=== PATIENT | male | born 1955 | race Caucasian/White ===

== ENCOUNTER 2017-03-26 21:26 | Emergency (ER) | payer OTHER ==
[~2017-03-26] VITALS: Ht 182.9 cm; Wt 100.0 kg
[~2017-03-26 21:26] MED LIST: ADV100 IH; AMIT50TA3 PO; ATOR10TA84 PO; BENZ1TAB10 PO; CLOB60CR4 TP; DIAZ10 PO; DONE10TA8 PO; ESOM20CA31 PO; LITH300C3 PO; QUET25TA PO; THEO400T3 PO; TIOT185 IH
[2017-03-26 21:57] LABS: BASOPHILS # (AUTO) 0.05 K/uL (0.00-0.20); BASOPHILS % (AUTO) 0.6 % (0.0-2.0); EOSINOPHILS # (AUTO) 0.29 K/uL (0.00-0.70); EOSINOPHILS % (AUTO) 3.46 % (1.0-6.0); HEMATOCRIT 41.6 % (41-53); LYMPHOCYTES # (AUTO) 1.1 K/uL (1.0-4.8); LYMPHOCYTES % (AUTO) 13.1 % (22.0-44.0); MEAN CORPUSCULAR HEMOGLOBIN 31.2 pg (26.0-34.0); MEAN CORPUSCULAR HGB CONC 33.6 G/dL (31.0-37.0); MEAN CORPUSCULAR VOLUME 93 fL (80-100); MONOCYTES # (AUTO) 0.5 K/uL (0.1-1.0); MONOCYTES % (AUTO) 6.4 % (2.0-9.0); NEUTROPHILS # (AUTO) 6.4 K/uL (1.8-7.7); NEUTROPHILS % (AUTO) 76.4 % (40.0-70.0); PLATELET COUNT (AUTO) 144 K/uL (150-450); RED BLOOD CELL COUNT(AUTO) 4.48 MIL/uL (4.50-5.90); RED CELL DISTRIBUTION WIDTH 14.8 % (11.5-14.5); WHITE BLOOD COUNT (AUTO) 8.4 K/uL (4.5-11.0)
[2017-03-26 22:05] LABS: ANION GAP 14 mmol/L (8-16); CALCIUM, TOTAL 9.4 mg/dL (8.8-10.5); CARBON DIOXIDE 23 mmol/L (22-29); CHLORIDE 103 mmol/L (98-107); CREATININE 1.65 mg/dL (0.60-1.30); GLOMERULAR FILTR. RATE CALC 43 mL/min (>60); POTASSIUM 3.5 mmol/L (3.5-5.1); SODIUM SERUM 140 mmol/L (136-145); UREA NITROGEN, BLOOD 15 mg/dL (7-18)
[2017-03-26 22:10] LABS: ALANINE AMINOTRANSFERASE 35 U/L (12-78); ALBUMIN 3.9 g/dL (3.4-5.0); ASPARTATE AMINOTRANSFERASE 22 U/L (15-37); BILIRUBIN,TOTAL 0.5 mg/dL (0.1-1.0); LITHIUM 0.73 mmol/L (0.60-1.20); TOTAL PROTEIN, SERUM 7.2 g/dL (6.4-8.2)
[2017-03-27 00:12] LABS: APPEARANCE,URINE CLEAR (CLEAR); GLUCOSE, URINE (UA) NEGATIVE (NEGATIVE); KETONES,URINE TRACE mg/dL (NEGATIVE); LEUKOCYTE ESTERASE ,URINE NEGATIVE (NEGATIVE); OCCULT BLOOD,URINE NEGATIVE (NEGATIVE); PH,URINE 6.5 (5.0-8.0); PROTEIN,URINE NEGATIVE (NEGATIVE)
[2017-03-27 00:21] LABS: HYALINE CASTS, URINE 0-2 /LPF (None Seen); SQUAMOUS EPITHELIAL CELL,UR Rare /LPF (None Seen); WBC,URINE 0-2 /HPF (0-5)
[2017-03-27 00:25] VITALS: BP 118/67
== END 2017-03-27 00:43 | disposition home or self-care (01) ==
LOC: EMS 21:27
DX: F25.1 Schizoaffective disorder, depressive type (principal); J44.9 Chronic obstructive pulmonary disease, unspecified; F32.9 Major depressive disorder, single episode, unspecified
CPT/HCPCS: 36415; 80053; 80178; 80307; 81001; 85025; 99284; G0480

== ENCOUNTER 2017-03-31 06:20 | Inpatient (IN) | payer OTHER ==
[~2017-03-31] VITALS: Ht 188 cm; Wt 94.1 kg
[2017-03-31] MEDS ORDERED: CALC-877 PO (06:29)
[2017-03-31] MEDS ORDERED: ALBU8HFA IH (06:29)
[2017-03-31] MEDS ORDERED: METO25 PO (06:29)
[2017-03-31] MEDS ORDERED: LITH300C3 PO (06:29)
[2017-03-31] MEDS ORDERED: ARIP10TA8 PO (06:29)
[2017-03-31] MEDS ORDERED: OMEP20 PO (06:29)
[2017-03-31] MEDS ORDERED: PANT40TA25 PO (06:29)
[2017-03-31] MEDS ORDERED: DSS100 PO (06:29)
[2017-03-31 06:37] LABS: GLUCOSE,POINT OF CARE 123 MG/DL (70-110)
[2017-03-31] MEDS ORDERED: NALOXONE HCL 1 MG/ML 2 ML SYG IVP ONE (06:45)
[2017-03-31] MEDS ORDERED: SODIUM CHLORIDE 0.9% 1,000 ML IV ONE (06:45)
[2017-03-31 06:58] LABS: BASOPHILS % (AUTO) 0.3 % (0.0-2.0); EOSINOPHILS % (AUTO) 1.8 % (1.0-6.0); HEMATOCRIT 41.4 % (41-53); LYMPHOCYTES # (AUTO) 0.8 K/uL (1.0-4.8); LYMPHOCYTES % (AUTO) 11.3 % (22.0-44.0); MEAN CORPUSCULAR HEMOGLOBIN 31.2 pg (26.0-34.0); MEAN CORPUSCULAR HGB CONC 33.7 G/dL (31.0-37.0); MEAN CORPUSCULAR VOLUME 93 fL (80-100); MONOCYTES # (AUTO) 0.4 K/uL (0.1-1.0); MONOCYTES % (AUTO) 5.9 % (2.0-9.0); NEUTROPHILS # (AUTO) 5.8 K/uL (1.8-7.7); NEUTROPHILS % (AUTO) 80.7 % (40.0-70.0); PLATELET COUNT (AUTO) 154 K/uL (150-450); RED BLOOD CELL COUNT(AUTO) 4.48 MIL/uL (4.50-5.90); RED CELL DISTRIBUTION WIDTH 15.5 % (11.5-14.5); WHITE BLOOD COUNT (AUTO) 7.2 K/uL (4.5-11.0)
[2017-03-31 07:10] LABS: PROTHROMBIN TIME 10.7 SEC (9.4-11.6)
[2017-03-31 07:11] LABS: ANION GAP 8 mmol/L (8-16); CALCIUM, TOTAL 9.1 mg/dL (8.8-10.5); CARBON DIOXIDE 27 mmol/L (22-29); CHLORIDE 105 mmol/L (98-107); CREATININE 1.35 mg/dL (0.60-1.30); GLOMERULAR FILTR. RATE CALC 54 mL/min (>60); POTASSIUM 3.9 mmol/L (3.5-5.1); SODIUM SERUM 140 mmol/L (136-145); UREA NITROGEN, BLOOD 11 mg/dL (7-18)
[2017-03-31 07:12] LABS: LITHIUM 0.66 mmol/L (0.60-1.20)
[2017-03-31 07:22] LABS: TROPONIN I < 0.02 ng/mL (0.00-0.05)
[2017-03-31 07:30] LABS: AMMONIA 14 umol/L (11-32)
[2017-03-31 07:35] LABS: ALANINE AMINOTRANSFERASE 32 U/L (12-78); ALBUMIN 3.6 g/dL (3.4-5.0); ASPARTATE AMINOTRANSFERASE 26 U/L (15-37); BILIRUBIN,TOTAL 0.6 mg/dL (0.1-1.0); CREATINE KINASE MB 3.6 ng/mL (0-5); CREATINE KINASE, TOTAL 189 U/L (39-308); TOTAL PROTEIN, SERUM 7.2 g/dL (6.4-8.2)
[2017-03-31 07:46] LABS: APPEARANCE,URINE CLOUDY (CLEAR); GLUCOSE, URINE (UA) NEGATIVE (NEGATIVE); KETONES,URINE 15 mg/dL (NEGATIVE); LEUKOCYTE ESTERASE ,URINE LARGE (NEGATIVE); OCCULT BLOOD,URINE LARGE (NEGATIVE); PROTEIN,URINE NEGATIVE (NEGATIVE)
[2017-03-31 07:59] LABS: ADD UA MICROSCOPIC YES
[2017-03-31 08:00] LABS: RBC,URINE 26-50 /HPF (0-2); WBC,URINE 26-50 /HPF (0-5)
[2017-03-31] MEDS ORDERED: CefTRIAXone 1 GM/DEXTROSE 50 ML IV ONE (08:15)
[2017-03-31 08:51] LABS: SALICYLATE < 2.8 mg/dL (2.8-20.0)
[2017-03-31] MEDS ORDERED: ONDANSETRON HCL 4 MG/2 ML VIAL IVP PRN (09:00)
[2017-03-31 09:07] LABS: ACETAMINOPHEN < 2 mcg/mL (10-30)
[2017-03-31 10:41] LABS: GLUCOSE,POINT OF CARE 81 MG/DL (70-110)
[2017-03-31 11:02] VITALS: BP 112/72
[2017-03-31 15:32] VITALS: BP 108/60
[2017-03-31 19:40] VITALS: BP 103/60
[2017-03-31] MEDS: ALBUTEROL SULFATE HFA 90 MCG/PUFF 8 GM INHALER IH PRN (21:51)
[2017-03-31 23:54] VITALS: BP 112/71
[2017-04-01] MEDS ORDERED: ACETAMINOPHEN 325 MG TABLET PO PRN
[2017-04-01] MEDS ORDERED: BISACODYL 10 MG RECTAL RECTAL SUPPOSITORY PR PRN
[2017-04-01] MEDS ORDERED: ONDANSETRON HCL 4 MG/2 ML VIAL IVP PRN
[2017-04-01] MEDS ORDERED: MAGNESIUM HYDROXIDE SUSPENSION 30 ML UDCUP PO PRN
[2017-04-01] MEDS ORDERED: ZOLPIDEM TARTRATE 5 MG TABLET PO PRN
[2017-04-01] MEDS ORDERED: MORPHINE SULFATE 2 MG/ML SYRINGE IVP PRN
[2017-04-01] MEDS: HEPARIN SODIUM,PORCINE 5,000 UNITS/ML VIAL SQ SCH ×3 (00:49→15:19)
[2017-04-01] MEDS: IPRATROPIUM BROMIDE 0.5 MG/2.5 ML NEB SOLUTION NEB PRN ×3 (03:41→18:52)
[2017-04-01] MEDS: ALBUTEROL SULFATE 2.5 MG/0.5 ML NEB SOLUTION NEB PRN ×3 (03:41→18:52)
[2017-04-01 04:54] VITALS: BP 123/74
[2017-04-01 07:34] VITALS: BP 107/61
[2017-04-01] MEDS: PANTOPRAZOLE SODIUM 40 MG DR TABLET PO SCH (08:38)
[2017-04-01] MEDS: FLUTICASONE/SALMETEROL 100 MCG-50 MCG/INH DISKUS INHALER [28] IH SCH (08:38)
[2017-04-01] MEDS: METOPROLOL TARTRATE 25 MG TABLET PO SCH ×2 (08:39→20:43)
[2017-04-01] MEDS: DIAZEPAM 5 MG TABLET PO SCH ×2 (08:39→20:44)
[2017-04-01] MEDS: CALCIUM OYSTER SHELL 250 MG-VIT D3 125 UNITS TABLET PO SCH ×3 (08:39→20:44)
[2017-04-01] MEDS: ATORVASTATIN CALCIUM 20 MG TABLET PO SCH (08:39)
[2017-04-01] MEDS: DOCUSATE SODIUM 100 MG CAPSULE PO SCH ×3 (08:40→20:42)
[2017-04-01] MEDS: PANTOPRAZOLE SODIUM 40 MG/VIAL IVP SCH (08:40)
[2017-04-01] MEDS: ALBUTEROL SULFATE HFA 90 MCG/PUFF 8 GM INHALER IH PRN ×2 (08:41→15:19)
[2017-04-01] MEDS: BENZTROPINE MESYLATE 1 MG TABLET PO SCH (09:00)
[2017-04-01] MEDS: AMITRIPTYLINE HCL 50 MG TABLET PO SCH ×3 (09:00→20:44)
[2017-04-01] MEDS: QUEtiapine FUMARATE 25 MG TABLET PO SCH (10:56)
[2017-04-01 11:20] VITALS: BP 128/86
[2017-04-01 15:54] VITALS: BP 127/73
[2017-04-01] MEDS ORDERED: 0.9% SODIUM CHLORIDE 5 ML NEB SOLUTION NEB ONE (18:49)
[2017-04-01 19:26] VITALS: BP 105/52
[2017-04-01] MEDS: ARIPiprazole 10 MG TABLET PO SCH (20:42)
[2017-04-01] MEDS: LITHIUM CARBONATE 300 MG CAPSULE PO SCH (20:43)
[2017-04-02] VITALS (7 sets, daily range): BP systolic 102–143; BP diastolic 47–74
[2017-04-02] MEDS: HEPARIN SODIUM,PORCINE 5,000 UNITS/ML VIAL SQ SCH ×3 (00:33→16:10)
[2017-04-02 06:32] LABS: BASOPHILS % (AUTO) 0.4 % (0.0-2.0); EOSINOPHILS % (AUTO) 2.8 % (1.0-6.0); HEMATOCRIT 39.8 % (41-53); HEMOGLOBIN 13.4 g/dL (13.5-17.5); LYMPHOCYTES % (AUTO) 17.3 % (22.0-44.0); MEAN CORPUSCULAR HEMOGLOBIN 31.3 pg (26.0-34.0); MEAN CORPUSCULAR HGB CONC 33.6 G/dL (31.0-37.0); MEAN CORPUSCULAR VOLUME 93 fL (80-100); MONOCYTES # (AUTO) 0.3 K/uL (0.1-1.0); MONOCYTES % (AUTO) 6.1 % (2.0-9.0); NEUTROPHILS # (AUTO) 4.2 K/uL (1.8-7.7); NEUTROPHILS % (AUTO) 73.4 % (40.0-70.0); PLATELET COUNT (AUTO) 164 K/uL (150-450); RED BLOOD CELL COUNT(AUTO) 4.28 MIL/uL (4.50-5.90); WHITE BLOOD COUNT (AUTO) 5.7 K/uL (4.5-11.0)
[2017-04-02] MEDS: ALBUTEROL SULFATE HFA 90 MCG/PUFF 8 GM INHALER IH PRN ×2 (06:59→09:21)
[2017-04-02 07:02] LABS: ALBUMIN 3.3 g/dL (3.4-5.0); BILIRUBIN,TOTAL 0.3 mg/dL (0.1-1.0); CALCIUM, TOTAL 9.7 mg/dL (8.8-10.5); CREATININE 1.31 mg/dL (0.60-1.30); POTASSIUM 4.5 mmol/L (3.5-5.1); TOTAL PROTEIN, SERUM 6.8 g/dL (6.4-8.2)
[2017-04-02] MEDS: DOCUSATE SODIUM 100 MG CAPSULE PO SCH ×3 (09:00→21:29)
[2017-04-02] MEDS: PANTOPRAZOLE SODIUM 40 MG/VIAL IVP SCH (09:00)
[2017-04-02] MEDS: FLUTICASONE/SALMETEROL 100 MCG-50 MCG/INH DISKUS INHALER [28] IH SCH ×3 (09:00→21:29)
[2017-04-02] MEDS: PANTOPRAZOLE SODIUM 40 MG DR TABLET PO SCH (09:22)
[2017-04-02] MEDS: METOPROLOL TARTRATE 25 MG TABLET PO SCH ×2 (09:22→21:00)
[2017-04-02] MEDS: ATORVASTATIN CALCIUM 20 MG TABLET PO SCH (09:22)
[2017-04-02] MEDS: DIAZEPAM 5 MG TABLET PO SCH ×2 (09:22→21:35)
[2017-04-02] MEDS: QUEtiapine FUMARATE 25 MG TABLET PO SCH (09:23)
[2017-04-02] MEDS: CALCIUM OYSTER SHELL 250 MG-VIT D3 125 UNITS TABLET PO SCH ×3 (09:23→21:31)
[2017-04-02] MEDS: AMITRIPTYLINE HCL 50 MG TABLET PO SCH ×3 (09:24→21:30)
[2017-04-02] MEDS: BENZTROPINE MESYLATE 1 MG TABLET PO SCH (12:22)
[2017-04-02] MEDS: ALBUTEROL SULFATE 2.5 MG/0.5 ML NEB SOLUTION NEB PRN ×2 (13:52→16:56)
[2017-04-02] MEDS: IPRATROPIUM BROMIDE 0.5 MG/2.5 ML NEB SOLUTION NEB PRN ×2 (13:52→16:56)
[2017-04-02] MEDS ORDERED: CEPH500 PO (17:29)
[2017-04-02] MEDS ORDERED: SODIUM CHLORIDE 0.9% 50 ML ONE (17:33)
[2017-04-02] MEDS: CefTRIAXone 1 GM/DEXTROSE 50 ML IV SCH (17:35)
[2017-04-02] MEDS: ARIPiprazole 10 MG TABLET PO SCH (21:29)
[2017-04-02] MEDS: LITHIUM CARBONATE 300 MG CAPSULE PO SCH (21:30)
[2017-04-03] MEDS: HEPARIN SODIUM,PORCINE 5,000 UNITS/ML VIAL SQ SCH ×3 (00:33→17:33)
[2017-04-03 04:56] VITALS: BP 128/59
[2017-04-03] MEDS: IPRATROPIUM BROMIDE 0.5 MG/2.5 ML NEB SOLUTION NEB PRN ×2 (07:02→18:57)
[2017-04-03] MEDS: ALBUTEROL SULFATE 2.5 MG/0.5 ML NEB SOLUTION NEB PRN ×2 (07:02→18:57)
[2017-04-03 07:05] LABS: HEMATOCRIT 42.5 % (41-53); MEAN CORPUSCULAR HEMOGLOBIN 30.9 pg (26.0-34.0); MEAN CORPUSCULAR HGB CONC 32.9 G/dL (31.0-37.0); MEAN CORPUSCULAR VOLUME 94 fL (80-100); RED BLOOD CELL COUNT(AUTO) 4.54 MIL/uL (4.50-5.90); RED CELL DISTRIBUTION WIDTH 15.3 % (11.5-14.5)
[2017-04-03 07:07] LABS: WHITE BLOOD COUNT (AUTO) 7.1 K/uL (4.5-11.0)
[2017-04-03 07:19] LABS: ALANINE AMINOTRANSFERASE 24 U/L (12-78); ALBUMIN 3.2 g/dL (3.4-5.0); ANION GAP 6 mmol/L (8-16); ASPARTATE AMINOTRANSFERASE 20 U/L (15-37); BILIRUBIN,TOTAL 0.3 mg/dL (0.1-1.0); CALCIUM, TOTAL 9.8 mg/dL (8.8-10.5); CARBON DIOXIDE 30 mmol/L (22-29); CHLORIDE 104 mmol/L (98-107); CREATININE 1.16 mg/dL (0.60-1.30); GLOMERULAR FILTR. RATE CALC > 60 mL/min (>60); POTASSIUM 4.3 mmol/L (3.5-5.1); SODIUM SERUM 140 mmol/L (136-145); TOTAL PROTEIN, SERUM 6.8 g/dL (6.4-8.2); UREA NITROGEN, BLOOD 10 mg/dL (7-18)
[2017-04-03 07:40] VITALS: BP 133/72
[2017-04-03 08:38] LABS: PLATELET COUNT (AUTO) 144 K/uL (150-450)
[2017-04-03 08:40] LABS: BAND NEUTROPHILS % (MANUAL) 14 % (1-5); LYMPHOCYTES % (MANUAL) 33 % (22-44); RBC MORPHOLOGY COMMENT NORMAL RBC MORPH; TOTAL CELLS COUNTED 100
[2017-04-03] MEDS: ATORVASTATIN CALCIUM 20 MG TABLET PO SCH (09:08)
[2017-04-03] MEDS: DIAZEPAM 5 MG TABLET PO SCH ×2 (09:09→20:04)
[2017-04-03] MEDS: METOPROLOL TARTRATE 25 MG TABLET PO SCH ×2 (09:09→21:29)
[2017-04-03] MEDS: PANTOPRAZOLE SODIUM 40 MG DR TABLET PO SCH (09:09)
[2017-04-03] MEDS: FLUTICASONE/SALMETEROL 100 MCG-50 MCG/INH DISKUS INHALER [28] IH SCH ×2 (09:09→20:02)
[2017-04-03] MEDS: DOCUSATE SODIUM 100 MG CAPSULE PO SCH ×2 (09:09→20:03)
[2017-04-03] MEDS: QUEtiapine FUMARATE 25 MG TABLET PO SCH (09:10)
[2017-04-03] MEDS: AMITRIPTYLINE HCL 50 MG TABLET PO SCH ×3 (09:11→20:03)
[2017-04-03] MEDS: CALCIUM OYSTER SHELL 250 MG-VIT D3 125 UNITS TABLET PO SCH ×3 (09:11→20:04)
[2017-04-03] MEDS: BENZTROPINE MESYLATE 1 MG TABLET PO SCH (09:11)
[2017-04-03 11:42] VITALS: BP 104/55
[2017-04-03] MEDS: ALBUTEROL SULFATE HFA 90 MCG/PUFF 8 GM INHALER IH PRN (13:50)
[2017-04-03] MEDS ORDERED: DENTURE ADHESIVE 68 GM CREAM DT PRN (14:45)
[2017-04-03 16:16] VITALS: BP 125/76
[2017-04-03] MEDS: CefTRIAXone 1 GM/DEXTROSE 50 ML IV SCH (17:33)
[2017-04-03] MEDS: ARIPiprazole 10 MG TABLET PO SCH (20:03)
[2017-04-03] MEDS: LITHIUM CARBONATE 300 MG CAPSULE PO SCH (20:04)
[2017-04-03 20:06] VITALS: BP 103/55
[2017-04-03 21:21] VITALS: BP 131/72
[2017-04-03] MEDS: HYDROCODONE/ACETAMINOPHEN 5-325 MG TABLET PO PRN (21:29)
[2017-04-04 00:20] VITALS: BP 103/67
[2017-04-04] MEDS: HEPARIN SODIUM,PORCINE 5,000 UNITS/ML VIAL SQ SCH ×4 (00:32→22:29)
[2017-04-04 05:55] LABS: BASOPHILS % (AUTO) 0.6 % (0.0-2.0); EOSINOPHILS % (AUTO) 3.4 % (1.0-6.0); HEMATOCRIT 41.4 % (41-53); LYMPHOCYTES # (AUTO) 1.3 K/uL (1.0-4.8); LYMPHOCYTES % (AUTO) 20.9 % (22.0-44.0); MEAN CORPUSCULAR HEMOGLOBIN 31.2 pg (26.0-34.0); MEAN CORPUSCULAR HGB CONC 33.9 G/dL (31.0-37.0); MEAN CORPUSCULAR VOLUME 92 fL (80-100); MONOCYTES # (AUTO) 0.4 K/uL (0.1-1.0); MONOCYTES % (AUTO) 7.3 % (2.0-9.0); NEUTROPHILS # (AUTO) 4.2 K/uL (1.8-7.7); NEUTROPHILS % (AUTO) 67.8 % (40.0-70.0); PLATELET COUNT (AUTO) 187 K/uL (150-450); RED BLOOD CELL COUNT(AUTO) 4.49 MIL/uL (4.50-5.90); WHITE BLOOD COUNT (AUTO) 6.1 K/uL (4.5-11.0)
[2017-04-04 05:57] VITALS: BP 130/60
[2017-04-04 06:10] LABS: ALBUMIN 3.1 g/dL (3.4-5.0); BILIRUBIN,TOTAL 0.3 mg/dL (0.1-1.0); CALCIUM, TOTAL 10.1 mg/dL (8.8-10.5); CREATININE 1.26 mg/dL (0.60-1.30); POTASSIUM 4.2 mmol/L (3.5-5.1); TOTAL PROTEIN, SERUM 7.2 g/dL (6.4-8.2)
[2017-04-04 07:22] VITALS: BP 111/74
[2017-04-04] MEDS ORDERED: SODIUM CHLORIDE 0.9% 100 ML ONE (08:09)
[2017-04-04] MEDS: METOPROLOL TARTRATE 25 MG TABLET PO SCH ×2 (08:11→20:07)
[2017-04-04] MEDS: CALCIUM OYSTER SHELL 250 MG-VIT D3 125 UNITS TABLET PO SCH ×3 (08:11→20:08)
[2017-04-04] MEDS: DIAZEPAM 5 MG TABLET PO SCH (08:11)
[2017-04-04] MEDS: PANTOPRAZOLE SODIUM 40 MG DR TABLET PO SCH (08:11)
[2017-04-04] MEDS: ATORVASTATIN CALCIUM 20 MG TABLET PO SCH (08:11)
[2017-04-04] MEDS: DOCUSATE SODIUM 100 MG CAPSULE PO SCH ×2 (08:11→20:07)
[2017-04-04] MEDS: AMITRIPTYLINE HCL 50 MG TABLET PO SCH (08:12)
[2017-04-04] MEDS: BENZTROPINE MESYLATE 1 MG TABLET PO SCH (08:12)
[2017-04-04] MEDS: QUEtiapine FUMARATE 25 MG TABLET PO SCH (08:12)
[2017-04-04] MEDS: FLUTICASONE/SALMETEROL 100 MCG-50 MCG/INH DISKUS INHALER [28] IH SCH (08:13)
[2017-04-04] MEDS: HYDROCODONE/ACETAMINOPHEN 5-325 MG TABLET PO PRN ×2 (11:07→23:53)
[2017-04-04] MEDS: ALBUTEROL SULFATE HFA 90 MCG/PUFF 8 GM INHALER IH PRN (11:07)
[2017-04-04 11:50] VITALS: BP 98/56
[2017-04-04] MEDS ORDERED: AMIT50TA3 PO ×2 (14:12→14:13)
[2017-04-04 15:05] VITALS: BP 107/66
[2017-04-04] MEDS: CefTRIAXone 1 GM/DEXTROSE 50 ML IV SCH (16:54)
[2017-04-04 19:23] VITALS: BP 120/75
[2017-04-04] MEDS: ALBUTEROL SULFATE 2.5 MG/0.5 ML NEB SOLUTION NEB PRN (19:35)
[2017-04-04] MEDS: IPRATROPIUM BROMIDE 0.5 MG/2.5 ML NEB SOLUTION NEB PRN (19:35)
[2017-04-04] MEDS: ARIPiprazole 10 MG TABLET PO SCH (20:07)
[2017-04-04] MEDS: LITHIUM CARBONATE 300 MG CAPSULE PO SCH (20:07)
[2017-04-04] MEDS: CLOBETASOL 0.05% 15 GM CREAM TP SCH ×2 (20:08→20:11)
[2017-04-05 00:48] VITALS: BP 112/76
[2017-04-05] MEDS: ALBUTEROL SULFATE HFA 90 MCG/PUFF 8 GM INHALER IH PRN ×4 (04:35→22:34)
[2017-04-05 05:25] VITALS: BP 110/63
[2017-04-05] MEDS: ALBUTEROL SULFATE 2.5 MG/0.5 ML NEB SOLUTION NEB PRN ×2 (05:53→23:11)
[2017-04-05] MEDS: IPRATROPIUM BROMIDE 0.5 MG/2.5 ML NEB SOLUTION NEB PRN ×2 (05:53→23:11)
[2017-04-05 06:48] LABS: ALBUMIN 3.2 g/dL (3.4-5.0); BILIRUBIN,TOTAL 0.3 mg/dL (0.1-1.0); CALCIUM, TOTAL 9.9 mg/dL (8.8-10.5); CREATININE 1.25 mg/dL (0.60-1.30); POTASSIUM 4.1 mmol/L (3.5-5.1); TOTAL PROTEIN, SERUM 6.8 g/dL (6.4-8.2)
[2017-04-05 07:09] LABS: BASOPHILS # (AUTO) 0.02 K/uL (0.00-0.20); BASOPHILS % (AUTO) 0.2 % (0.0-2.0); EOSINOPHILS # (AUTO) 0.24 K/uL (0.00-0.70); EOSINOPHILS % (AUTO) 3.48 % (1.0-6.0); HEMATOCRIT 41.9 % (41-53); HEMOGLOBIN 13.7 g/dL (13.5-17.5); LYMPHOCYTES # (AUTO) 1.4 K/uL (1.0-4.8); LYMPHOCYTES % (AUTO) 20.4 % (22.0-44.0); MEAN CORPUSCULAR HEMOGLOBIN 30.7 pg (26.0-34.0); MEAN CORPUSCULAR HGB CONC 32.8 G/dL (31.0-37.0); MEAN CORPUSCULAR VOLUME 94 fL (80-100); MONOCYTES # (AUTO) 0.6 K/uL (0.1-1.0); MONOCYTES % (AUTO) 8.3 % (2.0-9.0); NEUTROPHILS # (AUTO) 4.6 K/uL (1.8-7.7); NEUTROPHILS % (AUTO) 67.7 % (40.0-70.0); PLATELET COUNT (AUTO) 162 K/uL (150-450); RED BLOOD CELL COUNT(AUTO) 4.47 MIL/uL (4.50-5.90); RED CELL DISTRIBUTION WIDTH 15.2 % (11.5-14.5); WHITE BLOOD COUNT (AUTO) 6.8 K/uL (4.5-11.0)
[2017-04-05 07:15] VITALS: BP 103/55
[2017-04-05] MEDS: HEPARIN SODIUM,PORCINE 5,000 UNITS/ML VIAL SQ SCH ×3 (08:13→22:34)
[2017-04-05] MEDS: CALCIUM OYSTER SHELL 250 MG-VIT D3 125 UNITS TABLET PO SCH ×3 (08:14→20:42)
[2017-04-05] MEDS: PANTOPRAZOLE SODIUM 40 MG DR TABLET PO SCH (08:14)
[2017-04-05] MEDS: DOCUSATE SODIUM 100 MG CAPSULE PO SCH ×2 (08:14→20:43)
[2017-04-05] MEDS: METOPROLOL TARTRATE 25 MG TABLET PO SCH ×2 (08:15→20:47)
[2017-04-05] MEDS: CLOBETASOL 0.05% 15 GM CREAM TP SCH ×2 (08:20→20:45)
[2017-04-05] MEDS: HYDROCODONE/ACETAMINOPHEN 5-325 MG TABLET PO PRN ×2 (10:01→18:48)
[2017-04-05 11:59] VITALS: BP 120/72
[2017-04-05] MEDS: CefTRIAXone 1 GM/DEXTROSE 50 ML IV SCH (16:12)
[2017-04-05 16:14] VITALS: BP 111/58
[2017-04-05] MEDS ORDERED: SODIUM CHLORIDE 0.9% 250 ML IV ONE (16:18)
[2017-04-05] MEDS ORDERED: INFLUENZA VIRUS VACCINE QVS 2017-18 (3YR+)/PF 60 MCG/0.5 ML SYRINGE IM ONE (17:45)
[2017-04-05 20:38] VITALS: BP 103/53
[2017-04-05] MEDS: ARIPiprazole 10 MG TABLET PO SCH (20:42)
[2017-04-05] MEDS: LITHIUM CARBONATE 300 MG CAPSULE PO SCH (20:43)
[2017-04-06 00:30] VITALS: BP 107/65
[2017-04-06] MEDS: ALBUTEROL SULFATE HFA 90 MCG/PUFF 8 GM INHALER IH PRN ×2 (03:23→08:16)
[2017-04-06 03:30] VITALS: BP 112/78
[2017-04-06] MEDS: ALBUTEROL SULFATE 2.5 MG/0.5 ML NEB SOLUTION NEB PRN ×3 (03:40→13:51)
[2017-04-06] MEDS: IPRATROPIUM BROMIDE 0.5 MG/2.5 ML NEB SOLUTION NEB PRN ×3 (03:40→13:51)
[2017-04-06 06:33] LABS: BASOPHILS % (AUTO) 0.2 % (0.0-2.0); EOSINOPHILS % (AUTO) 2.8 % (1.0-6.0); HEMATOCRIT 46.7 % (41-53); HEMOGLOBIN 15.8 g/dL (13.5-17.5); LYMPHOCYTES % (AUTO) 13.7 % (22.0-44.0); MEAN CORPUSCULAR HEMOGLOBIN 31.4 pg (26.0-34.0); MEAN CORPUSCULAR HGB CONC 33.8 G/dL (31.0-37.0); MEAN CORPUSCULAR VOLUME 93 fL (80-100); MONOCYTES # (AUTO) 0.4 K/uL (0.1-1.0); NEUTROPHILS # (AUTO) 5.4 K/uL (1.8-7.7); NEUTROPHILS % (AUTO) 77.3 % (40.0-70.0); PLATELET COUNT (AUTO) 162 K/uL (150-450); RED BLOOD CELL COUNT(AUTO) 5.03 MIL/uL (4.50-5.90); RED CELL DISTRIBUTION WIDTH 14.6 % (11.5-14.5)
[2017-04-06 07:13] LABS: ALBUMIN 3.6 g/dL (3.4-5.0); BILIRUBIN,TOTAL 0.3 mg/dL (0.1-1.0); CALCIUM, TOTAL 10.6 mg/dL (8.8-10.5); CREATININE 1.25 mg/dL (0.60-1.30); POTASSIUM 4.3 mmol/L (3.5-5.1); TOTAL PROTEIN, SERUM 7.8 g/dL (6.4-8.2)
[2017-04-06 07:25] VITALS: BP 114/65
[2017-04-06] MEDS: CALCIUM OYSTER SHELL 250 MG-VIT D3 125 UNITS TABLET PO SCH ×2 (08:14→16:30)
[2017-04-06] MEDS: PANTOPRAZOLE SODIUM 40 MG DR TABLET PO SCH (08:14)
[2017-04-06] MEDS: DOCUSATE SODIUM 100 MG CAPSULE PO SCH (08:14)
[2017-04-06] MEDS: HEPARIN SODIUM,PORCINE 5,000 UNITS/ML VIAL SQ SCH ×2 (08:14→16:00)
[2017-04-06] MEDS: METOPROLOL TARTRATE 25 MG TABLET PO SCH (08:16)
[2017-04-06] MEDS: CLOBETASOL 0.05% 15 GM CREAM TP SCH (08:17)
[2017-04-06 11:36] VITALS: BP 135/64
[2017-04-06] MEDS ORDERED: CEFX1I IV (15:14)
[2017-04-06] MEDS: CefTRIAXone 1 GM/DEXTROSE 50 ML IV SCH (16:26)
== END 2017-04-06 17:20 | DRG 92 ==
LOC: EMS 06:20 → 5S 10:11 → 6N 04-04 19:00
PROVIDERS: ADMIT Hospitalist; ATTEND Hospitalist
PROC: 3E0234Z Introduction of Serum, Toxoid and Vaccine into Muscle, Percutaneous Approach (ICD-10-PCS; principal; 2017-04-05)
DX: G92 Toxic encephalopathy (principal); R45.851 Suicidal ideations; F03.90 Unspecified dementia, unspecified severity, without behavioral disturbance, psychotic disturbance, mood disturbance, and anxiety; N39.0 Urinary tract infection, site not specified; F20.9 Schizophrenia, unspecified; K21.9 Gastro-esophageal reflux disease without esophagitis; E78.5 Hyperlipidemia, unspecified; J44.9 Chronic obstructive pulmonary disease, unspecified; F17.210 Nicotine dependence, cigarettes, uncomplicated; B95.8 Unspecified staphylococcus as the cause of diseases classified elsewhere; Z23 Encounter for immunization
CPT/HCPCS: 51702; 70450; 82962; 87086; 93005; 94640; 96365; 96375; 99291; G0480; G0481; J0696; J1644; J2270; J2310; J3535; J7030; J7050

== ENCOUNTER 2017-04-22 11:39 | Inpatient (IN) | payer OTHER, MEDICAID ==
[~2017-04-22] VITALS: Ht 180.3 cm; Wt 92.8 kg
[~2017-04-22 11:39] MED LIST changes: +ALBU8HFA IH; +ARIP10TA8 PO; +CALC-877 PO; +CEFX1I IV; +DSS100 PO; +METO25 PO
[2017-04-22 12:27] LABS: BASOPHILS # (AUTO) 0.02 K/uL (0.00-0.20); BASOPHILS % (AUTO) 0.3 % (0.0-2.0); EOSINOPHILS # (AUTO) 0.26 K/uL (0.00-0.70); EOSINOPHILS % (AUTO) 2.81 % (1.0-6.0); HEMATOCRIT 44.9 % (41-53); HEMOGLOBIN 14.9 g/dL (13.5-17.5); LYMPHOCYTES # (AUTO) 1.5 K/uL (1.0-4.8); LYMPHOCYTES % (AUTO) 16.7 % (22.0-44.0); MEAN CORPUSCULAR HEMOGLOBIN 31.1 pg (26.0-34.0); MEAN CORPUSCULAR HGB CONC 33.2 G/dL (31.0-37.0); MEAN CORPUSCULAR VOLUME 94 fL (80-100); MONOCYTES # (AUTO) 0.5 K/uL (0.1-1.0); MONOCYTES % (AUTO) 5.8 % (2.0-9.0); NEUTROPHILS # (AUTO) 6.8 K/uL (1.8-7.7); NEUTROPHILS % (AUTO) 74.4 % (40.0-70.0); PLATELET COUNT (AUTO) 188 K/uL (150-450); RED BLOOD CELL COUNT(AUTO) 4.79 MIL/uL (4.50-5.90); RED CELL DISTRIBUTION WIDTH 15.8 % (11.5-14.5)
[2017-04-22 12:33] LABS: ANION GAP 12 mmol/L (8-16); CALCIUM, TOTAL 9.5 mg/dL (8.8-10.5); CARBON DIOXIDE 22 mmol/L (22-29); CHLORIDE 103 mmol/L (98-107); CREATININE 1.46 mg/dL (0.60-1.30); GLOMERULAR FILTR. RATE CALC 49 mL/min (>60); GLUCOSE,RANDOM 107 mg/dL (70-110); SODIUM SERUM 137 mmol/L (136-145); UREA NITROGEN, BLOOD 19 mg/dL (7-18)
[2017-04-22 12:39] LABS: ALANINE AMINOTRANSFERASE 33 U/L (12-78); ALBUMIN 4.3 g/dL (3.4-5.0); ALKALINE PHOSPHATASE 109 U/L (46-116); ASPARTATE AMINOTRANSFERASE 26 U/L (15-37); BILIRUBIN,TOTAL 0.8 mg/dL (0.1-1.0); TOTAL PROTEIN, SERUM 8.1 g/dL (6.4-8.2)
[2017-04-22] MEDS ORDERED: LORazepam 2 MG TABLET PO PRN (14:45)
[2017-04-22] MEDS ORDERED: HALOPERIDOL 5 MG TABLET PO PRN (14:45)
[2017-04-22 14:59] LABS: LITHIUM 0.72 mmol/L (0.60-1.20)
[2017-04-22 16:15] VITALS: BP 137/60
[2017-04-22 16:40] VITALS: BP 129/81
[2017-04-22] MEDS: NICOTINE 21 MG/24 HOUR PATCH TD SCH (19:30)
[2017-04-22 19:58] LABS: METHADONE SCREEN, URINE NEGATIVE (NEGATIVE)
[2017-04-22 20:10] LABS: AMPHET/METH SCREEN,URINE NEGATIVE (NEGATIVE); BARBITURATE SCREEN, URINE NEGATIVE (NEGATIVE); BENZODIAZEPINES SCREEN,URINE NEGATIVE (NEGATIVE); CANNABINOID SCREEN,URINE POSITIVE (NEGATIVE); COCAINE SCREEN,URINE NEGATIVE (NEGATIVE); OPIATE SCREEN,URINE NEGATIVE (NEGATIVE)
[2017-04-22 20:13] LABS: APPEARANCE,URINE CLEAR (CLEAR); GLUCOSE, URINE (UA) NEGATIVE (NEGATIVE); KETONES,URINE 15 mg/dL (NEGATIVE); LEUKOCYTE ESTERASE ,URINE NEGATIVE (NEGATIVE); NITRATE,URINE NEGATIVE (NEGATIVE); OCCULT BLOOD,URINE NEGATIVE (NEGATIVE); PHENCYCLIDINE SCREEN,URINE NEGATIVE (NEGATIVE); PROTEIN,URINE NEGATIVE (NEGATIVE); UROBILINOGEN,URINE 0.2 mg/dL (<=1.0)
[2017-04-22 20:18] LABS: BILIRUBIN,URINE PRELIM. POSITIVE (NEGATIVE)
[2017-04-23 07:24] LABS: CHOL/HDL RATIO 3.4 (4.2-7.3)
[2017-04-23] MEDS ORDERED: BACITRACIN 28.4 GM OINTMENT TP PRN (08:45)
[2017-04-23] MEDS ORDERED: MAGNESIUM HYDROXIDE SUSPENSION 30 ML UDCUP PO PRN (08:45)
[2017-04-23] MEDS ORDERED: BENZOCAINE/MENTHOL LOZENGE [8 LOZENGES/PACKET] MM PRN (08:45)
[2017-04-23] MEDS ORDERED: LOPERAMIDE HCL 2 MG CAPSULE PO PRN (08:45)
[2017-04-23] MEDS ORDERED: PETROLATUM,WHITE 71 GM JELLY TP PRN (08:45)
[2017-04-23] MEDS ORDERED: ONDANSETRON HCL 4 MG TABLET PO PRN (08:45)
[2017-04-23] MEDS ORDERED: IBUPROFEN 600 MG TABLET PO PRN (08:45)
[2017-04-23] MEDS ORDERED: ACETAMINOPHEN 325 MG TABLET PO PRN (08:45)
[2017-04-23] MEDS ORDERED: MAG HYDROX/AL HYDROX/SIMETH ES 30 ML SUSPENSION UDCUP PO PRN (08:45)
[2017-04-23] MEDS ORDERED: CloNIDine HCL 0.1 MG TABLET PO PRN (08:45)
[2017-04-23 08:55] VITALS: BP 94/63
[2017-04-23] MEDS: CLOBETASOL 0.05% 15 GM CREAM TP SCH ×2 (09:00→17:00)
[2017-04-23] MEDS: FLUTICASONE/VILANTEROL 100-25 MCG/INH INHALER [14] IH SCH (09:02)
[2017-04-23] MEDS: VENLAFAXINE HCL 75 MG ER CAPSULE PO SCH (09:02)
[2017-04-23] MEDS: ATORVASTATIN CALCIUM 20 MG TABLET PO SCH (09:03)
[2017-04-23] MEDS: DOCUSATE SODIUM 100 MG CAPSULE PO SCH (09:03)
[2017-04-23] MEDS: ESOMEPRAZOLE MAG TRIHYDRATE 20 MG CAPSULE PO SCH (09:03)
[2017-04-23] MEDS: NICOTINE 21 MG/24 HOUR PATCH TD SCH (09:06)
[2017-04-23] MEDS: DENTURE ADHESIVE 68 GM CREAM DT PRN (09:48)
[2017-04-23] MEDS: ALBUTEROL SULFATE HFA 90 MCG/PUFF 8 GM INHALER IH PRN (14:33)
[2017-04-23 16:33] VITALS: BP 104/70
[2017-04-24] MEDS: ALBUTEROL SULFATE HFA 90 MCG/PUFF 8 GM INHALER IH PRN ×2 (01:39→05:42)
[2017-04-24 01:58] VITALS: BP 113/82
[2017-04-24 07:33] LABS: CALCIUM, TOTAL 8.8 mg/dL (8.8-10.5); CREATININE 1.26 mg/dL (0.60-1.30); POTASSIUM 3.9 mmol/L (3.5-5.1)
[2017-04-24 08:35] VITALS: BP 129/80
[2017-04-24] MEDS: VENLAFAXINE HCL 75 MG ER CAPSULE PO SCH (08:59)
[2017-04-24] MEDS: ESOMEPRAZOLE MAG TRIHYDRATE 20 MG CAPSULE PO SCH (08:59)
[2017-04-24] MEDS: FLUTICASONE/VILANTEROL 100-25 MCG/INH INHALER [14] IH SCH (08:59)
[2017-04-24] MEDS: ATORVASTATIN CALCIUM 20 MG TABLET PO SCH (08:59)
[2017-04-24] MEDS: DOCUSATE SODIUM 100 MG CAPSULE PO SCH (08:59)
[2017-04-24] MEDS: CLOBETASOL 0.05% 15 GM CREAM TP SCH ×2 (09:00→17:00)
[2017-04-24] MEDS: NICOTINE 21 MG/24 HOUR PATCH TD SCH (09:03)
[2017-04-24] MEDS: ZOLPIDEM TARTRATE 10 MG TABLET PO PRN (21:56)
[2017-04-24 22:06] VITALS: BP 122/78
[2017-04-25] MEDS: ALBUTEROL SULFATE HFA 90 MCG/PUFF 8 GM INHALER IH PRN ×2 (02:16→06:16)
[2017-04-25 02:23] VITALS: BP 119/61
[2017-04-25] MEDS: DOCUSATE SODIUM 100 MG CAPSULE PO SCH (08:32)
[2017-04-25] MEDS: ESOMEPRAZOLE MAG TRIHYDRATE 20 MG CAPSULE PO SCH (08:32)
[2017-04-25] MEDS: FLUTICASONE/VILANTEROL 100-25 MCG/INH INHALER [14] IH SCH (08:32)
[2017-04-25] MEDS: ATORVASTATIN CALCIUM 20 MG TABLET PO SCH (08:32)
[2017-04-25] MEDS: NICOTINE 21 MG/24 HOUR PATCH TD SCH (08:32)
[2017-04-25] MEDS: VENLAFAXINE HCL 75 MG ER CAPSULE PO SCH (08:33)
[2017-04-25] MEDS: CLOBETASOL 0.05% 15 GM CREAM TP SCH ×2 (08:33→17:00)
[2017-04-25 08:40] VITALS: BP 133/57
[2017-04-25 18:12] VITALS: BP 115/64
[2017-04-26 02:43] VITALS: BP 141/77
[2017-04-26] MEDS: ALBUTEROL SULFATE HFA 90 MCG/PUFF 8 GM INHALER IH PRN ×2 (02:44→14:45)
[2017-04-26] MEDS: CLOBETASOL 0.05% 15 GM CREAM TP SCH ×2 (09:00→17:00)
[2017-04-26] MEDS: NICOTINE 21 MG/24 HOUR PATCH TD SCH (09:00)
[2017-04-26] MEDS: DOCUSATE SODIUM 100 MG CAPSULE PO SCH (09:02)
[2017-04-26] MEDS: VENLAFAXINE HCL 75 MG ER CAPSULE PO SCH (09:03)
[2017-04-26] MEDS: ATORVASTATIN CALCIUM 20 MG TABLET PO SCH (09:03)
[2017-04-26] MEDS: FLUTICASONE/VILANTEROL 100-25 MCG/INH INHALER [14] IH SCH (09:03)
[2017-04-26] MEDS: ESOMEPRAZOLE MAG TRIHYDRATE 20 MG CAPSULE PO SCH (09:04)
[2017-04-26 09:40] VITALS: BP 126/74
[2017-04-26] MEDS ORDERED: LOPERAMIDE HCL 2 MG CAPSULE PO PRN ×2 (13:30)
[2017-04-26 16:30] VITALS: BP 119/75
[2017-04-26] MEDS: ZOLPIDEM TARTRATE 10 MG TABLET PO PRN (21:56)
[2017-04-27 08:30] VITALS: BP 113/55
[2017-04-27] MEDS: NICOTINE 21 MG/24 HOUR PATCH TD SCH (09:00)
[2017-04-27] MEDS: FLUTICASONE/VILANTEROL 100-25 MCG/INH INHALER [14] IH SCH ×2 (09:00→12:44)
[2017-04-27] MEDS: ESOMEPRAZOLE MAG TRIHYDRATE 20 MG CAPSULE PO SCH (09:00)
[2017-04-27] MEDS: VENLAFAXINE HCL 75 MG ER CAPSULE PO SCH (09:00)
[2017-04-27] MEDS: CLOBETASOL 0.05% 15 GM CREAM TP SCH ×2 (09:00→17:00)
[2017-04-27] MEDS: ATORVASTATIN CALCIUM 20 MG TABLET PO SCH (10:31)
[2017-04-27] MEDS: DOCUSATE SODIUM 100 MG CAPSULE PO SCH (10:31)
[2017-04-27] MEDS: ALBUTEROL SULFATE HFA 90 MCG/PUFF 8 GM INHALER IH PRN ×2 (12:46→20:10)
[2017-04-27] MEDS: DENTURE ADHESIVE 68 GM CREAM DT PRN (12:46)
[2017-04-27 16:15] VITALS: BP 127/60
[2017-04-27] MEDS: ZOLPIDEM TARTRATE 10 MG TABLET PO PRN (20:08)
[2017-04-28 02:53] VITALS: BP 122/72
[2017-04-28] MEDS: DOCUSATE SODIUM 100 MG CAPSULE PO SCH (08:08)
[2017-04-28] MEDS: NICOTINE 21 MG/24 HOUR PATCH TD SCH (08:08)
[2017-04-28] MEDS: ESOMEPRAZOLE MAG TRIHYDRATE 20 MG CAPSULE PO SCH (08:09)
[2017-04-28] MEDS: VENLAFAXINE HCL 75 MG ER CAPSULE PO SCH (08:09)
[2017-04-28] MEDS: ATORVASTATIN CALCIUM 20 MG TABLET PO SCH (08:09)
[2017-04-28] MEDS: ALBUTEROL SULFATE HFA 90 MCG/PUFF 8 GM INHALER IH PRN ×2 (08:10→13:12)
[2017-04-28] MEDS: FLUTICASONE/VILANTEROL 100-25 MCG/INH INHALER [14] IH SCH (08:13)
[2017-04-28] MEDS: CLOBETASOL 0.05% 15 GM CREAM TP SCH ×2 (08:14→17:00)
[2017-04-28 08:44] VITALS: BP 139/75
[2017-04-28 17:29] VITALS: BP 134/77
[2017-04-28] MEDS: AMITRIPTYLINE HCL 50 MG TABLET PO SCH (20:15)
[2017-04-29] MEDS: NICOTINE 21 MG/24 HOUR PATCH TD SCH (09:00)
[2017-04-29] MEDS: VENLAFAXINE HCL 75 MG ER CAPSULE PO SCH (09:42)
[2017-04-29] MEDS: ESOMEPRAZOLE MAG TRIHYDRATE 20 MG CAPSULE PO SCH (09:42)
[2017-04-29] MEDS: DOCUSATE SODIUM 100 MG CAPSULE PO SCH (09:42)
[2017-04-29] MEDS: FLUTICASONE/VILANTEROL 100-25 MCG/INH INHALER [14] IH SCH (09:43)
[2017-04-29] MEDS: ATORVASTATIN CALCIUM 20 MG TABLET PO SCH (09:43)
[2017-04-29] MEDS: ALBUTEROL SULFATE HFA 90 MCG/PUFF 8 GM INHALER IH PRN ×2 (09:43→17:09)
[2017-04-29] MEDS: CLOBETASOL 0.05% 15 GM CREAM TP SCH ×2 (09:43→17:10)
[2017-04-29 09:44] VITALS: BP 127/62
[2017-04-29 19:37] VITALS: BP 117/74
[2017-04-29] MEDS: AMITRIPTYLINE HCL 50 MG TABLET PO SCH (21:34)
[2017-04-29] MEDS: ZOLPIDEM TARTRATE 10 MG TABLET PO PRN (21:34)
[2017-04-30 06:03] VITALS: BP 118/70
[2017-04-30 08:19] VITALS: BP 119/56
[2017-04-30] MEDS: NICOTINE 21 MG/24 HOUR PATCH TD SCH (09:00)
[2017-04-30] MEDS: VENLAFAXINE HCL 75 MG ER CAPSULE PO SCH (09:04)
[2017-04-30] MEDS: ATORVASTATIN CALCIUM 20 MG TABLET PO SCH (09:04)
[2017-04-30] MEDS: ALBUTEROL SULFATE HFA 90 MCG/PUFF 8 GM INHALER IH PRN (09:05)
[2017-04-30] MEDS: ESOMEPRAZOLE MAG TRIHYDRATE 20 MG CAPSULE PO SCH (09:05)
[2017-04-30] MEDS: DOCUSATE SODIUM 100 MG CAPSULE PO SCH (09:06)
[2017-04-30] MEDS: FLUTICASONE/VILANTEROL 100-25 MCG/INH INHALER [14] IH SCH (09:07)
[2017-04-30] MEDS: CLOBETASOL 0.05% 15 GM CREAM TP SCH ×2 (09:08→17:07)
[2017-04-30 20:02] VITALS: BP 141/76
[2017-04-30] MEDS: AMITRIPTYLINE HCL 50 MG TABLET PO SCH (20:10)
[2017-05-01] MEDS: CLOBETASOL 0.05% 15 GM CREAM TP SCH ×2 (09:00→16:11)
[2017-05-01] MEDS: NICOTINE 21 MG/24 HOUR PATCH TD SCH (09:00)
[2017-05-01] MEDS: DOCUSATE SODIUM 100 MG CAPSULE PO SCH (09:11)
[2017-05-01] MEDS: VENLAFAXINE HCL 75 MG ER CAPSULE PO SCH (09:11)
[2017-05-01] MEDS: ATORVASTATIN CALCIUM 20 MG TABLET PO SCH (09:11)
[2017-05-01] MEDS: ESOMEPRAZOLE MAG TRIHYDRATE 20 MG CAPSULE PO SCH (09:11)
[2017-05-01] MEDS: FLUTICASONE/VILANTEROL 100-25 MCG/INH INHALER [14] IH SCH (09:12)
[2017-05-01] MEDS: ALBUTEROL SULFATE HFA 90 MCG/PUFF 8 GM INHALER IH PRN (09:13)
[2017-05-01 11:39] VITALS: BP 133/61
[2017-05-01 17:10] VITALS: BP 142/76
[2017-05-01] MEDS: AMITRIPTYLINE HCL 50 MG TABLET PO SCH (20:20)
[2017-05-01] MEDS: ZOLPIDEM TARTRATE 10 MG TABLET PO PRN (20:55)
[2017-05-02 08:33] VITALS: BP 126/75
[2017-05-02] MEDS: NICOTINE 21 MG/24 HOUR PATCH TD SCH (09:00)
[2017-05-02] MEDS: CLOBETASOL 0.05% 15 GM CREAM TP SCH ×2 (09:00→17:00)
[2017-05-02] MEDS: ATORVASTATIN CALCIUM 20 MG TABLET PO SCH (09:42)
[2017-05-02] MEDS: ESOMEPRAZOLE MAG TRIHYDRATE 20 MG CAPSULE PO SCH (09:42)
[2017-05-02] MEDS: DOCUSATE SODIUM 100 MG CAPSULE PO SCH (09:42)
[2017-05-02] MEDS: VENLAFAXINE HCL 75 MG ER CAPSULE PO SCH (09:42)
[2017-05-02] MEDS: ALBUTEROL SULFATE HFA 90 MCG/PUFF 8 GM INHALER IH PRN ×2 (09:45→16:28)
[2017-05-02] MEDS: FLUTICASONE/VILANTEROL 100-25 MCG/INH INHALER [14] IH SCH (09:46)
[2017-05-02 16:35] VITALS: BP 115/70
[2017-05-02] MEDS: AMITRIPTYLINE HCL 50 MG TABLET PO SCH (20:12)
[2017-05-02] MEDS: ZOLPIDEM TARTRATE 10 MG TABLET PO PRN (20:54)
[2017-05-03] MEDS: NICOTINE 21 MG/24 HOUR PATCH TD SCH (09:00)
[2017-05-03] MEDS: CLOBETASOL 0.05% 15 GM CREAM TP SCH ×2 (09:00→17:00)
[2017-05-03] MEDS: DOCUSATE SODIUM 100 MG CAPSULE PO SCH (09:07)
[2017-05-03] MEDS: ESOMEPRAZOLE MAG TRIHYDRATE 20 MG CAPSULE PO SCH (09:07)
[2017-05-03] MEDS: ATORVASTATIN CALCIUM 20 MG TABLET PO SCH (09:07)
[2017-05-03] MEDS: VENLAFAXINE HCL 75 MG ER CAPSULE PO SCH (09:07)
[2017-05-03] MEDS: FLUTICASONE/VILANTEROL 100-25 MCG/INH INHALER [14] IH SCH (09:10)
[2017-05-03] MEDS: ALBUTEROL SULFATE HFA 90 MCG/PUFF 8 GM INHALER IH PRN (09:10)
[2017-05-03] MEDS: DENTURE ADHESIVE 68 GM CREAM DT PRN (09:11)
[2017-05-03 10:22] VITALS: BP 145/81
[2017-05-03 16:27] VITALS: BP 114/63
[2017-05-03] MEDS: ZOLPIDEM TARTRATE 10 MG TABLET PO PRN (21:23)
[2017-05-03] MEDS: AMITRIPTYLINE HCL 50 MG TABLET PO SCH (21:23)
[2017-05-04 08:10] VITALS: BP 120/81
[2017-05-04] MEDS: DOCUSATE SODIUM 100 MG CAPSULE PO SCH (08:26)
[2017-05-04] MEDS: ATORVASTATIN CALCIUM 20 MG TABLET PO SCH (08:27)
[2017-05-04] MEDS: VENLAFAXINE HCL 75 MG ER CAPSULE PO SCH (08:27)
[2017-05-04] MEDS: ESOMEPRAZOLE MAG TRIHYDRATE 20 MG CAPSULE PO SCH (08:28)
[2017-05-04] MEDS: FLUTICASONE/VILANTEROL 100-25 MCG/INH INHALER [14] IH SCH (08:29)
[2017-05-04] MEDS: NICOTINE 21 MG/24 HOUR PATCH TD SCH (09:00)
[2017-05-04] MEDS: CLOBETASOL 0.05% 15 GM CREAM TP SCH (09:00)
[2017-05-04] MEDS: ALBUTEROL SULFATE HFA 90 MCG/PUFF 8 GM INHALER IH PRN (09:08)
[2017-05-04] MEDS ORDERED: AMIT50TA3 PO (11:21)
[2017-05-04] MEDS ORDERED: VENL-67 PO (11:22)
[2017-05-04] MEDS ORDERED: FLUT1AER IH (11:23)
== END 2017-05-04 13:35 | disposition home or self-care (01) | DRG 885 ==
LOC: EMS 11:40 → 3EI 14:35
PROVIDERS: ADMIT Psychiatry & Neurology Psychiatry; ATTEND Psychiatry & Neurology Psychiatry
DX: F33.2 Major depressive disorder, recurrent severe without psychotic features (principal); N17.9 Acute kidney failure, unspecified; R45.851 Suicidal ideations; E78.5 Hyperlipidemia, unspecified; F12.90 Cannabis use, unspecified, uncomplicated; F17.200 Nicotine dependence, unspecified, uncomplicated; G47.00 Insomnia, unspecified; J44.9 Chronic obstructive pulmonary disease, unspecified; K21.9 Gastro-esophageal reflux disease without esophagitis; K59.00 Constipation, unspecified; L40.9 Psoriasis, unspecified; Z59.0 Homelessness; Z56.0 Unemployment, unspecified; Z71.51 Drug abuse counseling and surveillance of drug abuser; Z71.6 Tobacco abuse counseling; Z79.899 Other long term (current) drug therapy; Z88.8 Allergy status to other drugs, medicaments and biological substances
CPT/HCPCS: 87081; 99285; G0480; J3535